=== PATIENT | male | born 1960 | race Caucasian/White ===

== ENCOUNTER → 2020-06-19 | Outpatient (CLI) | payer BC ==
[~2020-06-19] MED LIST: BRILINTA90 MG PO; BUMETANIDE1 MG PO; CLINDAMYCIN HC300 MG PO; CRESTOR10 MG PO; DOME-PASTE BANDA1 EA EXT; ECOTRIN81 MG PO; FARXIGA10 MG PO; FINASTERIDE5 MG PO; FLOMAX0.4 MG PO; GABAPENTIN600 MG PO; GLUCOPHAGE500 MG PO; GLUCOTROL5 MG PO; IMDUR ER TAB 3030 MG PO; ISOSORBIDE MONO60 MG PO; JANUVIA100 MG PO; LASIX40 MG PO; LEVEMIR100 UNIT/1 SQ; LIPITOR TAB 1010 MG PO; MOBIC7.5 MG PO; MYCOSTATIN CREA15 GM TOP; NITROSTAT0.4 MG SL; NORVASC 5 MG TAB5 MG PO; NOVOLOG FL100 UNIT/1 SC; PHENERGAN 12.12.5 M1 PO; PROTONIX40 MG PO; ZESTRIL40 MG PO
== END ==
LOC: HEART 5 08:20
DX: I25.10 Atherosclerotic heart disease of native coronary artery without angina pectoris (principal); I10 Essential (primary) hypertension; R07.9 Chest pain, unspecified; R60.0 Localized edema; R00.2 Palpitations; R06.02 Shortness of breath; R94.39 Abnormal result of other cardiovascular function study
CPT/HCPCS: 78452; A9502; J2785

== ENCOUNTER 2020-12-09 14:24 | Inpatient (IN) | payer BC ==
[~2020-12-09] VITALS: Ht 182.9 cm; Wt 135.2 kg
[~2020-12-09 14:24] MED LIST changes: -BUMETANIDE1 MG PO; -CLINDAMYCIN HC300 MG PO; -DOME-PASTE BANDA1 EA EXT; -ISOSORBIDE MONO60 MG PO; -MYCOSTATIN CREA15 GM TOP; -NOVOLOG FL100 UNIT/1 SC
[2020-12-09 15:11] LABS: HEMOGLOBIN 10.4 gm/dl (14.0-17.5); WHITE BLOOD COUNT 5.9 K/UL (4.5-11.0)
[2020-12-09 15:55] LABS: BUN/CREATININE RATIO 18 (0-10)
[2020-12-09] MEDS ORDERED: NOVOLOG FL100 UNIT/1 SC (19:19)
[2020-12-10 08:07] LABS: RED BLOOD COUNT 3.86 M/UL (4.20-5.50); WHITE BLOOD COUNT 5.2 K/UL (4.5-11.0)
[2020-12-11 08:42] LABS: RED BLOOD COUNT 3.85 M/UL (4.20-5.50); WHITE BLOOD COUNT 4.9 K/UL (4.5-11.0)
[2020-12-11 22:55] LABS: HEMOGLOBIN 9.7 gm/dl (14.0-17.5); RED BLOOD COUNT 3.75 M/UL (4.20-5.50); WHITE BLOOD COUNT 4.7 K/UL (4.5-11.0)
[2020-12-12 03:05] LABS: HEMOGLOBIN 9.8 gm/dl (14.0-17.5); RED BLOOD COUNT 3.81 M/UL (4.20-5.50)
[2020-12-12 03:32] LABS: BUN/CREATININE RATIO 18 (0-10)
[2020-12-13 04:34] LABS: HEMOGLOBIN 9.8 gm/dl (14.0-17.5); RED BLOOD COUNT 3.79 M/UL (4.20-5.50); WHITE BLOOD COUNT 4.9 K/UL (4.5-11.0)
[2020-12-13 04:46] LABS: BUN/CREATININE RATIO 21 (0-10)
--- NOTE | 2020-12-13 23:21 | NUR ---
12/13/20 @ 2300 ENTERED PT ROOM, ON ASSESSMENT PT LETHARGIC, STATED " HELP ME", OBTAINED VITAL SIGNS, NEUROLOGICAL ASSESSMENT COMPLATED, NIH SCALE COMPLETED, GLUCOSE CHECKED, CHARGE NURSE NOTIFIED, PT STATED. " DIFFERENT PRESSURE FROM BEFORE, FELT FLUTTERING". 2311- NOTIFIED MD AND HE ORDERED CARDIAC SCREEN, CHEST X RAY, AND EKG. WILL CONTINUE TO MONITOR.
[2020-12-14 05:03] LABS: HEMOGLOBIN 9.9 gm/dl (14.0-17.5); RED BLOOD COUNT 3.82 M/UL (4.20-5.50); WHITE BLOOD COUNT 4.5 K/UL (4.5-11.0)
[2020-12-14 06:11] LABS: BUN/CREATININE RATIO 20 (0-10)
[2020-12-14 14:40] LABS: HEMOGLOBIN 10.2 gm/dl (14.0-17.5)
--- NOTE | 2020-12-14 19:13 | NUR ---
1130 Patient started to have nose bleed. Encouraged patient to tilt head back and apply pressure to bridge of nose. [address] Schaeffer of patient's nose bleed. Stated to continue to apply pressure. 1330 New order noted for Afrin Nasal Truchas, given as ordered. 1350 ER doctor her to insert Rhinorocket into right nare. Pressure applied for 10 minutes. Bleeding stopped.
[2020-12-15 04:03] LABS: HEMOGLOBIN 9.6 gm/dl (14.0-17.5); RED BLOOD COUNT 3.71 M/UL (4.20-5.50); WHITE BLOOD COUNT 4.2 K/UL (4.5-11.0)
[2020-12-15 04:46] LABS: BUN/CREATININE RATIO 22 (0-10)
[2020-12-16 05:13] LABS: HEMOGLOBIN 9.4 gm/dl (14.0-17.5)
[2020-12-16 05:44] LABS: BUN/CREATININE RATIO 20 (0-10)
[2020-12-17 03:30] LABS: BUN/CREATININE RATIO 19 (0-10)
[2020-12-18 04:51] LABS: BUN/CREATININE RATIO 16 (0-10)
[2020-12-18] MEDS ORDERED: MYCOSTATIN CREA15 GM TOP (08:44)
[2020-12-18] MEDS ORDERED: CLINDAMYCIN HC300 MG PO (08:44)
[2020-12-18] MEDS ORDERED: BUMETANIDE1 MG PO (08:44)
[2020-12-18] MEDS ORDERED: DOME-PASTE BANDA1 EA EXT (08:44)
[2020-12-18] MEDS ORDERED: ISOSORBIDE MONO60 MG PO (08:44)
[2021-03-08] MEDS ORDERED: FLUCONAZOLE200 MG PO (10:19)
[2021-03-08] MEDS ORDERED: MELOXICAM7.5 MG PO (10:23)
[2021-03-08] MEDS ORDERED: TOPROL XL 25 MG25 MG PO (10:28)
[2021-03-08] MEDS ORDERED: SOMA350 MG PO (10:32)
[2021-03-08] MEDS ORDERED: TRULICITY1.5 MG/0.5 SQ (10:33)
[2021-03-08] MEDS ORDERED: FARXIGA5 MG PO (10:34)
[2021-03-08] MEDS ORDERED: VITAMIN D21250 MCG PO (10:35)
== END 2020-12-18 14:42 | disposition home health service (06) | DRG 291 ==
LOC: ER1 14:24 → CDU 17:24 → MED SURG 4 17:24
PROVIDERS: Emergency Medicine; Internal Medicine; ADMIT Internal Medicine
DX: I11.0 Hypertensive heart disease with heart failure (principal); J96.01 Acute respiratory failure with hypoxia; G93.41 Metabolic encephalopathy; L03.116 Cellulitis of left lower limb; L03.115 Cellulitis of right lower limb; N17.9 Acute kidney failure, unspecified; I50.33 Acute on chronic diastolic (congestive) heart failure; B95.62 Methicillin resistant Staphylococcus aureus infection as the cause of diseases classified elsewhere; I87.8 Other specified disorders of veins; D64.9 Anemia, unspecified; E11.9 Type 2 diabetes mellitus without complications; I25.10 Atherosclerotic heart disease of native coronary artery without angina pectoris; E11.65 Type 2 diabetes mellitus with hyperglycemia; E78.5 Hyperlipidemia, unspecified; E66.01 Morbid (severe) obesity due to excess calories; E11.319 Type 2 diabetes mellitus with unspecified diabetic retinopathy without macular edema; E11.40 Type 2 diabetes mellitus with diabetic neuropathy, unspecified; N40.0 Benign prostatic hyperplasia without lower urinary tract symptoms; Z95.5 Presence of coronary angioplasty implant and graft; G89.4 Chronic pain syndrome; Z83.3 Family history of diabetes mellitus; Z82.5 Family history of asthma and other chronic lower respiratory diseases; Z98.42 Cataract extraction status, left eye; Z98.41 Cataract extraction status, right eye; Z79.4 Long term (current) use of insulin; Z79.82 Long term (current) use of aspirin; Z79.899 Other long term (current) drug therapy; Z79.01 Long term (current) use of anticoagulants
CPT/HCPCS: ECHO; 36415; 36600; 51701; 71045; 71250; 71275; 78579; 80048; 80053; 80061; 80202; 81001; 82140; 82550; 82553; 82803; 82962; 83036; 83605; 83735; 83874; 83880; 84484; 85014; 85018; 85025; 85027; 85379; 87040; 87070; 87077; 87186; 87205; 93005; 93306; 93970; 94640; 94664; 94760; 96374; 96375; 97116-GP-CQ; 97161; 99285; A9540; J0692; J0696; J1650; J1940; J3370; J7070; Q9967; U0002

== ENCOUNTER → 2021-01-03 | Outpatient (CLI) | payer BC ==
[~2021-01-03] MED LIST changes: +BUMETANIDE1 MG PO; +CLINDAMYCIN HC300 MG PO; +DOME-PASTE BANDA1 EA EXT; +FARXIGA5 MG PO; +FLUCONAZOLE200 MG PO; +ISOSORBIDE MONO60 MG PO; +MELOXICAM7.5 MG PO; +MYCOSTATIN CREA15 GM TOP; +NOVOLOG FL100 UNIT/1 SC; +SOMA350 MG PO; +TOPROL XL 25 MG25 MG PO; +TRULICITY1.5 MG/0.5 SQ; +VITAMIN D21250 MCG PO
[2021-01-03 12:59] LABS: RED BLOOD COUNT 4.39 M/UL (4.20-5.50); WHITE BLOOD COUNT 5.5 K/UL (4.5-11.0)
== END ==
LOC: LAB 11:28
PROVIDERS: Internal Medicine Pulmonary Disease
DX: I50.9 Heart failure, unspecified (principal); R09.02 Hypoxemia; J98.11 Atelectasis
CPT/HCPCS: 36415; 36600; 71046; 80053; 82803; 85025

== ENCOUNTER → 2021-03-08 | Outpatient (CLI) | payer BC ==
[2021-03-08 10:08] LABS: HEMOGLOBIN 11.4 gm/dl (14.0-17.5); RED BLOOD COUNT 4.43 M/UL (4.20-5.50); WHITE BLOOD COUNT 6.3 K/UL (4.5-11.0)
== END ==
LOC: CATH 08:00
PROVIDERS: Internal Medicine Cardiovascular Disease
DX: I25.118 Atherosclerotic heart disease of native coronary artery with other forms of angina pectoris (principal); I11.0 Hypertensive heart disease with heart failure; I50.9 Heart failure, unspecified; E78.5 Hyperlipidemia, unspecified; E11.9 Type 2 diabetes mellitus without complications; M54.9 Dorsalgia, unspecified; G89.29 Other chronic pain; E66.9 Obesity, unspecified; Z95.5 Presence of coronary angioplasty implant and graft; Z68.39 Body mass index [BMI] 39.0-39.9, adult; Z88.6 Allergy status to analgesic agent; Z79.82 Long term (current) use of aspirin; Z79.4 Long term (current) use of insulin; Z79.899 Other long term (current) drug therapy
CPT/HCPCS: 36415; 80048; 82962; 85025; 93005; J1644; J2250; J3010; J7030; Q9965

== ENCOUNTER 2021-04-04 09:07 | Outpatient (CLI) | payer BC ==
[~2021-04-04] VITALS: Ht 182.9 cm; Wt 131.5 kg
[2021-04-04] MEDS ORDERED: VOLTAREN EC 7575 MG PO (09:50)
[2021-04-04] MEDS ORDERED: LINZESS145 MCG PO (09:51)
[2021-04-04] MEDS ORDERED: PEPCID40 MG PO (09:51)
[2021-04-04] MEDS ORDERED: DICYCLOMINE HCL10 MG PO (09:51)
[2021-04-04] MEDS ORDERED: REFRESH CLASSI1 EACH OP (09:52)
[2021-04-04] MEDS ORDERED: RELAFEN750 MG PO (09:52)
[2021-04-04] MEDS ORDERED: VESICARE10 MG PO (09:52)
[2021-04-04 09:53] LABS: HEMOGLOBIN 11.2 gm/dl (14.0-17.5); RED BLOOD COUNT 4.47 M/UL (4.20-5.50); WHITE BLOOD COUNT 5.5 K/UL (4.5-11.0)
[2021-04-04] MEDS ORDERED: BUMETANIDE1 MG PO (09:58)
[2021-04-04] MEDS ORDERED: FARXIGA10 MG PO (09:59)
[2021-04-04 10:19] LABS: BUN/CREATININE RATIO 13 (0-10)
[2021-04-05 05:04] LABS: HEMOGLOBIN 9.8 gm/dl (14.0-17.5); WHITE BLOOD COUNT 5.6 K/UL (4.5-11.0)
[2021-04-05 05:06] LABS: RED BLOOD COUNT 3.95 M/UL (4.20-5.50)
[2021-04-05] MEDS ORDERED: BUMETANIDE1 MG PO (15:50)
== END 2021-04-05 16:17 | disposition home or self-care (01) ==
LOC: CATH 09:07 → PROG CARE 14:50 → CATH 04-05 16:17
PROVIDERS: Internal Medicine Cardiovascular Disease
DX: I25.118 Atherosclerotic heart disease of native coronary artery with other forms of angina pectoris (principal); I11.0 Hypertensive heart disease with heart failure; I50.32 Chronic diastolic (congestive) heart failure; E78.5 Hyperlipidemia, unspecified; E11.319 Type 2 diabetes mellitus with unspecified diabetic retinopathy without macular edema; E11.21 Type 2 diabetes mellitus with diabetic nephropathy; N40.0 Benign prostatic hyperplasia without lower urinary tract symptoms; G89.4 Chronic pain syndrome; E66.9 Obesity, unspecified; Z95.5 Presence of coronary angioplasty implant and graft; Z68.39 Body mass index [BMI] 39.0-39.9, adult; Z79.4 Long term (current) use of insulin; Z79.82 Long term (current) use of aspirin; Z79.899 Other long term (current) drug therapy
CPT/HCPCS: 36415; 70450; 80048; 82962; 85025; 85027; 85347; 85610; 85730; 92978; 93005; 93571; 99152; 99153; C1725; C1753; C1769; C1874; C1887; C9600; J0360; J1644; J2250; J2270; J2405; J2550; J2765; J3010; Q9965; Q9967

== ENCOUNTER 2021-05-25 13:35 | Emergency (ER) | payer BC ==
[~2021-05-25 13:35] MED LIST changes: +DICYCLOMINE HCL10 MG PO; +LINZESS145 MCG PO; +PEPCID40 MG PO; +REFRESH CLASSI1 EACH OP; +RELAFEN750 MG PO; +VESICARE10 MG PO; +VOLTAREN EC 7575 MG PO
[2021-05-25 15:46] LABS: HEMOGLOBIN 13.5 gm/dl (14.0-17.5); RED BLOOD COUNT 5.24 M/UL (4.20-5.50); WHITE BLOOD COUNT 8.4 K/UL (4.5-11.0)
[2021-05-25 16:20] LABS: BUN/CREATININE RATIO 24 (0-10)
== END 2021-05-25 18:05 | disposition short-term general hospital (02) ==
LOC: ER1 13:35
PROVIDERS: Family Medicine
DX: K22.2 Esophageal obstruction (principal); E86.0 Dehydration; I11.9 Hypertensive heart disease without heart failure; E11.9 Type 2 diabetes mellitus without complications; Z95.5 Presence of coronary angioplasty implant and graft; Z20.822 Contact with and (suspected) exposure to COVID-19
CPT/HCPCS: 71046; 71250; 80053; 82550; 82553; 83874; 84484; 85025; 93005; 99285; U0002